=== PATIENT | female | born 2005 | race Caucasian/White ===

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

== ENCOUNTER → 2024-05-05 | Outpatient (CLI) | payer OTHER ==
--- NOTE | 2024-05-05 17:56 | XR ---
EXAMINATION TYPE: XR Hip Complete RT DATE OF EXAM: 05/05/2024 5:47 PM COMPARISON: None. CLINICAL INDICATION: Female, 18 years old with history of M25.551 PAIN IN RIGHT HIP; PHH TECHNIQUE: XR Hip Complete RT; Frontal and lateral views FINDINGS: No evidence for acute process, joint dislocation or significant soft tissue swelling. Right hip joint space appears well-maintained. IMPRESSION: No acute process. [facility], , 05/05/2024 5:53 PM
== END | disposition home or self-care (01) ==
LOC: RADXRMAIN 17:24
PROVIDERS: ATTEND Pediatrics Adolescent Medicine
DX: M25.551 Pain in right hip (principal)
CPT/HCPCS: 73502